=== PATIENT | male | born 1990 | race Hispanic/Latino ===

== ENCOUNTER 2020-02-24 09:35 | Inpatient (IN) | payer BC, OTHER ==
[~2020-02-24] VITALS: Ht 180.3 cm; Wt 151.6 kg
[2020-02-24 11:19] LABS: APPEARANCE,URINE Clear (CLEAR); BILIRUBIN,URINE Negative (NEGATIVE); COLOR,URINE Yellow (YELLOW); GLUCOSE, URINE (UA) Negative (NEGATIVE); KETONES,URINE Negative (NEGATIVE); LEUKOCYTE ESTERASE ,URINE Negative (NEGATIVE); NITRATE,URINE Negative (NEGATIVE); OCCULT BLOOD,URINE Negative (NEGATIVE); PROTEIN,URINE Negative (NEGATIVE)
[2020-02-24] MEDS ORDERED: KETOROLAC TROMETHAMINE 60 MG/2 ML VIAL ONE (11:41)
[2020-02-24] MEDS ORDERED: MORPHINE SULFATE 4 MG/1ML SYG ONE ×2 (11:42→12:29)
[2020-02-24] MEDS ORDERED: ONDANSETRON ODT 4 MG TAB ONE (11:42)
[2020-02-24] MEDS ORDERED: MORPHINE SULFATE 2 MG/ML 1ML SYG ONE ×2 (11:42→21:21)
[2020-02-24 12:49] LABS: BASOPHILS % (AUTO) 0.7 % (0.0-5.0); EOSINOPHILS % (AUTO) 0.6 % (0.0-8.0); HEMATOCRIT 43.3 % (42-54); MEAN CORPUSCULAR HEMOGLOBIN 28.8 pg (27.0-33.0); MEAN CORPUSCULAR HGB CONC 34.2 g/dL (32.0-36.0); MEAN CORPUSCULAR VOLUME 84.2 fL (79-99); MONOCYTES % (AUTO) 6.1 % (3.0-13.0); NEUTROPHILS % (AUTO) 57.2 % (40.0-77.0); PLATELET COUNT (AUTO) 261 K/uL (130-400); RED BLOOD CELL COUNT(AUTO) 5.14 MIL/uL (4.50-6.20); RED CELL DISTRIBUTION WIDTH 12.5 % (11.0-15.5); WHITE BLOOD COUNT (AUTO) 9.1 K/uL (4.8-10.8)
[2020-02-24 13:05] LABS: INR 0.96 (0.85-1.15); PARTIAL THROMBOPLASTIN TIME 29.3 SEC (26.3-35.5); PROTHROMBIN TIME 10.4 SEC (9.6-11.6)
[2020-02-24 13:11] LABS: CREATININE 0.8 mg/dL (0.5-1.5); POTASSIUM 3.9 mmol/L (3.5-5.1)
[2020-02-24 13:18] LABS: ALBUMIN 3.3 g/dL (3.5-5.0); BILIRUBIN,TOTAL 0.4 mg/dL (0.2-1.0); TOTAL PROTEIN, SERUM 6.8 g/dL (6.0-8.3)
[2020-02-24] MEDS ORDERED: DEXAMETHASONE SOD PHOSPHATE 4 MG/ML 1ML VIAL ONE ×2 (15:06→21:21)
[2020-02-24] MEDS: PANTOPRAZOLE SODIUM 40 MG TABLET.DR PO SCH (16:36)
[2020-02-24] MEDS ORDERED: ONDANSETRON HCL 4 MG/2 ML VIAL IVP PRN (16:45)
[2020-02-24] MEDS: LACTATED RINGERS 1000ML 1,000 ML IV SCH (16:45)
[2020-02-24] MEDS ORDERED: LACTATED RINGERS 1000ML 1,000 ML IV ONE (21:22)
[2020-02-24 21:50] VITALS: BP 143/97
[2020-02-24] MEDS ORDERED: CLON0.252 PO (22:35)
[2020-02-24] MEDS ORDERED: GABA600T10 PO (22:35)
[2020-02-24] MEDS ORDERED: SERT100T12 PO (22:35)
[2020-02-24 23:34] VITALS: BP 154/84
[2020-02-25] MEDS: DEXAMETHASONE SOD PHOSPHATE 4 MG/ML 1ML VIAL IVP SCH ×4 (03:19→19:37)
[2020-02-25 03:50] VITALS: BP 135/93
[2020-02-25 08:00] VITALS: BP 151/99
[2020-02-25] MEDS: GABAPENTIN 300 MG CAPSULE PO SCH ×2 (09:49→19:38)
[2020-02-25] MEDS: LIDOCAINE 5% TOPICAL PATCH TP SCH (09:49)
[2020-02-25] MEDS: BACLOFEN 10 MG TABLET PO SCH ×3 (09:49→19:37)
[2020-02-25] MEDS: PANTOPRAZOLE SODIUM 40 MG TABLET.DR PO SCH (09:49)
[2020-02-25 11:00] VITALS: BP 145/91
[2020-02-25] MEDS: LACTATED RINGERS 1000ML 1,000 ML IV SCH ×2 (13:28→19:44)
[2020-02-25] MEDS: MORPHINE SULFATE 2 MG/ML 1ML SYG IVP PRN (15:53)
[2020-02-25 16:00] VITALS: BP 146/85
[2020-02-25 21:58] VITALS: BP 144/84
[2020-02-26] VITALS (7 sets, daily range): BP systolic 114–147; BP diastolic 84–95
[2020-02-26] MEDS: DEXAMETHASONE SOD PHOSPHATE 4 MG/ML 1ML VIAL IVP SCH ×4 (03:30→19:54)
[2020-02-26 05:34] LABS: BASOPHILS % (AUTO) 0.1 % (0.0-5.0); LYMPHOCYTES % (AUTO) 10.4 % (21.0-51.0); MEAN CORPUSCULAR HEMOGLOBIN 28.7 pg (27.0-33.0); MEAN CORPUSCULAR HGB CONC 34.3 g/dL (32.0-36.0); MEAN CORPUSCULAR VOLUME 83.8 fL (79-99); MONOCYTES % (AUTO) 3.2 % (3.0-13.0); NEUTROPHILS % (AUTO) 85.7 % (40.0-77.0); PLATELET COUNT (AUTO) 313 K/uL (130-400); RED BLOOD CELL COUNT(AUTO) 5.01 MIL/uL (4.50-6.20); RED CELL DISTRIBUTION WIDTH 12.3 % (11.0-15.5); WHITE BLOOD COUNT (AUTO) 14.4 K/uL (4.8-10.8)
[2020-02-26 05:54] LABS: CREATININE 0.8 mg/dL (0.5-1.5); POTASSIUM 3.9 mmol/L (3.5-5.1)
[2020-02-26] MEDS: LIDOCAINE 5% TOPICAL PATCH TP SCH (09:49)
[2020-02-26] MEDS: PANTOPRAZOLE SODIUM 40 MG TABLET.DR PO SCH (09:49)
[2020-02-26] MEDS: GABAPENTIN 300 MG CAPSULE PO SCH ×2 (09:50→19:54)
[2020-02-26] MEDS: BACLOFEN 10 MG TABLET PO SCH ×3 (09:50→19:54)
[2020-02-26] MEDS: MORPHINE SULFATE 2 MG/ML 1ML SYG IVP PRN ×2 (12:32→23:50)
[2020-02-27 04:23] VITALS: BP 144/80
[2020-02-27] MEDS: DEXAMETHASONE SOD PHOSPHATE 4 MG/ML 1ML VIAL IVP SCH ×3 (05:26→19:55)
--- NOTE | 2020-02-27 07:22 | NUR ---
IN TO SEE PT.
--- NOTE | 2020-02-27 07:24 | NUR ---
MD ANURAG SOTO VISITED WITH PATIENT. POC DISCUSSED. NO NEW ORDERS AT THIS TIME. PATIENT AWARE. NO QUESTIONS OR CONCERNS VOICED. CALL LIGHT WITHIN REACH. WILL CONTINUE TO BE OBSERVED. Addendum: 02/27/20 at 0725 by SHUN CANALES RN RN Amended: Links added.
[2020-02-27 08:00] VITALS: BP 126/70
--- NOTE | 2020-02-27 09:00 | NUR ---
MET W PATIENT FOR DC PLANNING LIVES W SPOUSE, IS ACTIVE AND EMPLOYED, NO DME, RECENT DECLINE IN FUNCTIONAL STATUS PT USING WALKER IN ROOM AT THIS TIME , GOAL WILL BE TO GO HOME WITHOUT WALKER, BUT WILL SEND FOR RX/DME JUST IN CASE SPOUSE BERNY TO PROVIDE TRANSPORT, PATIENT WILL PROBALB GO [facility] WALK[facility] AND DME TO BE CHANGED OUT ON SUNDAY OR SUNDAY Addendum: 02/27/20 at 5702 by NICK KWOK RN CM Amended: Links added.
[2020-02-27] MEDS: LIDOCAINE 5% TOPICAL PATCH TP SCH (09:44)
[2020-02-27] MEDS: GABAPENTIN 300 MG CAPSULE PO SCH ×2 (09:44→22:16)
[2020-02-27] MEDS: BACLOFEN 10 MG TABLET PO SCH ×3 (09:44→21:00)
[2020-02-27] MEDS: PANTOPRAZOLE SODIUM 40 MG TABLET.DR PO SCH (09:44)
[2020-02-27 12:52] VITALS: BP 120/88
[2020-02-27] MEDS ORDERED: ACETAMINOPHEN-CODEINE 300/30MG TAB PO PRN (13:00)
[2020-02-27 16:00] VITALS: BP 144/82
[2020-02-27 20:24] VITALS: BP 133/80
[2020-02-28 00:24] VITALS: BP 123/74
[2020-02-28] MEDS: DEXAMETHASONE SOD PHOSPHATE 4 MG/ML 1ML VIAL IVP SCH ×3 (03:30→15:59)
[2020-02-28 04:24] VITALS: BP 119/71
[2020-02-28 07:36] VITALS: BP 111/75
[2020-02-28] MEDS: LIDOCAINE 5% TOPICAL PATCH TP SCH (10:24)
[2020-02-28] MEDS: GABAPENTIN 300 MG CAPSULE PO SCH (10:25)
[2020-02-28] MEDS: BACLOFEN 10 MG TABLET PO SCH ×2 (10:25→15:58)
[2020-02-28] MEDS: PANTOPRAZOLE SODIUM 40 MG TABLET.DR PO SCH (10:25)
[2020-02-28 10:52] VITALS: BP 117/58
--- NOTE | 2020-02-28 11:30 | NUR ---
PER DR OSORIO PT IS TO BE DC'D HOME WITH A WALKER. SPOKE TO YULIANA FRAME NAILER STATED THAT PT IS TO GO HOME WITH [facility] WALK[facility] UNTIL HE RECEIVES HIS WALKER, THEN WILL RETURN THE [facility] WALKER.
[2020-02-28] MEDS ORDERED: GABA300C PO (11:36)
[2020-02-28] MEDS ORDERED: BACL10TA PO (11:36)
[2020-02-28] MEDS ORDERED: PANT40TA PO (11:36)
[2020-02-28 15:10] VITALS: BP 125/72
== END 2020-02-28 21:00 | disposition home or self-care (01) | DRG 552 ==
LOC: EDH 09:35 → EDHIP 15:58 → OBSVTOIN 15:58 → 3CH 21:50
PROVIDERS: ADMIT Internal Medicine; ATTEND Internal Medicine
DX: M51.16 Intervertebral disc disorders with radiculopathy, lumbar region (principal); Z68.42 Body mass index [BMI] 45.0-49.9, adult; F41.1 Generalized anxiety disorder; F43.10 Post-traumatic stress disorder, unspecified; E66.01 Morbid (severe) obesity due to excess calories; M48.061 Spinal stenosis, lumbar region without neurogenic claudication; I10 Essential (primary) hypertension; G89.29 Other chronic pain; Z88.0 Allergy status to penicillin; Z88.5 Allergy status to narcotic agent; Z83.3 Family history of diabetes mellitus; Z82.5 Family history of asthma and other chronic lower respiratory diseases; Z82.49 Family history of ischemic heart disease and other diseases of the circulatory system; M51.17 Intervertebral disc disorders with radiculopathy, lumbosacral region
CPT/HCPCS: 36415; 72148; 80048; 80053; 81003; 82948; 85025; 85610; 85730; 97039; G0378; J1100; J1885; J2270; J2405; J7120